=== PATIENT | female | born 1975 | race Two or more races ===

== ENCOUNTER 2018-03-12 14:29 | Outpatient (CLI) | payer OTHER | END 2018-03-12 16:03 | disposition home or self-care (01) | LOC: RAD 501 14:29 | DX: M54.2 Cervicalgia (principal); M54.6 Pain in thoracic spine; M54.5 Low back pain; M62.838 Other muscle spasm ==

== ENCOUNTER 2018-05-02 11:13 | Outpatient (CLI) | payer OTHER | END 2018-05-02 11:16 | disposition home or self-care (01) | LOC: SONOGRAMA 11:13 | DX: E04.1 Nontoxic single thyroid nodule (principal) ==

== ENCOUNTER 2018-06-23 08:25 | Outpatient (CLI) | payer OTHER | END 2018-06-23 09:00 | disposition home or self-care (01) | LOC: NUCLEAR 08:25 | DX: E05.90 Thyrotoxicosis, unspecified without thyrotoxic crisis or storm (principal) | CPT/HCPCS: 78012; A9531 ==

== ENCOUNTER 2018-06-24 08:40 | Outpatient (CLI) | payer OTHER | END 2018-06-24 09:00 | disposition home or self-care (01) | LOC: NUCLEAR 08:40 | DX: E05.90 Thyrotoxicosis, unspecified without thyrotoxic crisis or storm (principal) | CPT/HCPCS: 78013; A9512 ==

== ENCOUNTER 2018-08-14 09:06 | Outpatient (CLI) | payer OTHER ==
[~2018-08-14] VITALS: Ht 172.7 cm; Wt 59.0 kg
== END 2018-08-14 09:20 | disposition home or self-care (01) ==
LOC: OFIC 805 09:06
DX: H90.41 Sensorineural hearing loss, unilateral, right ear, with unrestricted hearing on the contralateral side (principal); E05.80 Other thyrotoxicosis without thyrotoxic crisis or storm

== ENCOUNTER → 2019-03-10 | Outpatient (CLI) | payer OTHER | END | disposition home or self-care (01) | LOC: NUCLEAR 13:00 | DX: M81.0 Age-related osteoporosis without current pathological fracture (principal) ==

== ENCOUNTER 2020-02-24 09:33 | Outpatient (CLI) | payer OTHER | END 2020-02-24 09:35 | disposition home or self-care (01) | LOC: MAMO-SONO 09:33 | DX: Z12.31 Encounter for screening mammogram for malignant neoplasm of breast (principal); Z87.898 Personal history of other specified conditions; N63.15 Unspecified lump in the right breast, overlapping quadrants ==

== ENCOUNTER 2021-08-30 12:20 | Outpatient (CLI) | payer OTHER | END 2021-08-30 12:33 | disposition home or self-care (01) | LOC: MAMO-SONO 12:20 | DX: N60.11 Diffuse cystic mastopathy of right breast (principal); N60.12 Diffuse cystic mastopathy of left breast; Z12.31 Encounter for screening mammogram for malignant neoplasm of breast ==